=== PATIENT | male | born 1990 | race Caucasian/White ===

== ENCOUNTER 2019-11-16 08:44 | Outpatient (REF) | payer OTHER, SELFPAY | END 2019-11-16 08:45 | disposition home or self-care (01) | LOC: HO.MDS 08:44 | PROVIDERS: Visit Provider Internal Medicine Pulmonary Disease | DX: J45.50 Severe persistent asthma, uncomplicated (principal) | CPT/HCPCS: 96372 ==

== ENCOUNTER 2020-01-16 08:23 | Outpatient (REF) | payer OTHER, SELFPAY | END 2020-01-16 08:24 | disposition home or self-care (01) | LOC: HO.MDS 08:23 | PROVIDERS: Visit Provider Internal Medicine Pulmonary Disease | DX: J45.909 Unspecified asthma, uncomplicated (principal) | CPT/HCPCS: 96372; J0517 ==

== ENCOUNTER 2020-03-14 12:02 | Outpatient (REF) | payer OTHER, SELFPAY | END 2020-03-14 12:03 | disposition home or self-care (01) | LOC: HO.MDS 12:02 | PROVIDERS: Visit Provider Internal Medicine Pulmonary Disease | DX: J45.50 Severe persistent asthma, uncomplicated (principal) | CPT/HCPCS: 96372; J0517 ==

== ENCOUNTER 2020-05-09 12:07 | Outpatient (REF) | payer OTHER, SELFPAY | END 2020-05-09 12:08 | disposition home or self-care (01) | LOC: HO.MDS 12:07 | PROVIDERS: Visit Provider Internal Medicine Pulmonary Disease | DX: J45.50 Severe persistent asthma, uncomplicated (principal) | CPT/HCPCS: 96372; J0517 ==

== ENCOUNTER 2020-05-21 09:46 | Outpatient (REF) | payer OTHER, SELFPAY ==
--- NOTE | ~2020-05-21 | XR_ITS ---
EXAMINATION: BILATERAL HAND AND WRIST X-RAY CLINICAL INFORMATION: Pain COMPARISON: Previous right hand x-ray February 2015 TECHNIQUE: 3 views of the hands and wrists FINDINGS: Bone alignment is normal. No fracture or dislocation is seen. The joint spaces are normal. Soft tissues are normal. XR/XR hand wrist LT IMPRESSION: Unremarkable exam.
--- NOTE | ~2020-05-21 | XR_ITS ---
EXAMINATION: BILATERAL HAND AND WRIST X-RAY CLINICAL INFORMATION: Pain COMPARISON: Previous right hand x-ray February 2015 TECHNIQUE: 3 views of the hands and wrists FINDINGS: Bone alignment is normal. No fracture or dislocation is seen. The joint spaces are normal. Soft tissues are normal. XR/XR hand wrist RT IMPRESSION: Unremarkable exam.
== END 2020-05-21 09:47 | disposition home or self-care (01) ==
LOC: HO.XRAY 09:46
PROVIDERS: PCP Registered Nurse; Visit Provider Registered Nurse
DX: M25.531 Pain in right wrist (principal); M25.532 Pain in left wrist; M79.641 Pain in right hand; M79.642 Pain in left hand; R20.0 Anesthesia of skin; R29.898 Other symptoms and signs involving the musculoskeletal system
CPT/HCPCS: 73110; 73130

== ENCOUNTER 2020-06-11 13:05 | Outpatient (REF) | payer OTHER, SELFPAY | END 2020-06-11 13:06 | disposition home or self-care (01) | LOC: HO.MDS 13:05 | PROVIDERS: Visit Provider Internal Medicine Pulmonary Disease | DX: J45.50 Severe persistent asthma, uncomplicated (principal) | CPT/HCPCS: 96372; J0517 ==

== ENCOUNTER 2020-08-06 10:07 | Outpatient (REF) | payer OTHER, SELFPAY | END 2020-08-06 10:08 | disposition home or self-care (01) | LOC: HO.MDS 10:07 | PROVIDERS: PCP Registered Nurse; Visit Provider Internal Medicine Pulmonary Disease | DX: J45.50 Severe persistent asthma, uncomplicated (principal) | CPT/HCPCS: 96372; J0517 ==

== ENCOUNTER → 2020-08-14 09:20 | Outpatient (BNVA) | payer OTHER, SELFPAY | PROVIDERS: PCP Registered Nurse; Visit Provider Internal Medicine Pulmonary Disease | DX: J45.50 Severe persistent asthma, uncomplicated (principal); Z91.09 Other allergy status, other than to drugs and biological substances | CPT/HCPCS: 99212 ==

== ENCOUNTER 2020-10-15 14:00 | Outpatient (REF) | payer OTHER, SELFPAY | END 2020-10-15 14:01 | disposition home or self-care (01) | LOC: HO.MDS 14:00 | PROVIDERS: Visit Provider Internal Medicine Pulmonary Disease | DX: J45.50 Severe persistent asthma, uncomplicated (principal) | CPT/HCPCS: 96372; J0517 ==

== ENCOUNTER 2020-12-12 13:56 | Outpatient (REF) | payer OTHER, SELFPAY | END 2020-12-12 13:57 | disposition home or self-care (01) | LOC: HO.MDS 13:56 | PROVIDERS: PCP Registered Nurse; Visit Provider Internal Medicine Pulmonary Disease | DX: J45.50 Severe persistent asthma, uncomplicated (principal) | CPT/HCPCS: 96372; J0517 ==